=== PATIENT | female | born 1985 | race Caucasian/White ===

== ENCOUNTER 2024-07-18 05:59 | Emergency (ER) | payer OTHER, SELFPAY ==
[2024-07-18] VITALS (7 sets, daily range): BP systolic 99–141; BP diastolic 48–83; PULSE 103–115; RESP 17–20; TEMP 36.5–36.6; O2SAT 95–98; BMI 41.6
--- NOTE | ~2024-07-18 | US_ITS ---
EXAMINATION: US TRIPLEX LOWER EXTREMITY, BILATERAL CLINICAL INFORMATION: Bilateral lower external pain and swelling COMPARISON: None available. TECHNIQUE: Color-flow triplex imaging with spectral analysis and compression Doppler were performed on the bilateral lower extremities. FINDINGS: Respiratory variation, normal compression and augmented flow are noted throughout the bilateral lower extremities. The visualized common femoral vein, superficial femoral vein, profunda femoral vein, popliteal vein and midcalf posterior tibial venous segments show no evidence of deep venous thrombosis bilaterally. The bilateral peroneal veins are not visualized. There is no Crespo's cyst. US/US venous duplex LE BI IMPRESSION: No evidence of deep venous thrombosis involving the bilateral lower extremities. Electronically signed by: Luana Peñaloza MD 07/18/2024 01:18 PM [facility]
--- NOTE | ~2024-07-18 | XR_ITS ---
EXAMINATION: XR CHEST CLINICAL INFORMATION: chest pain COMPARISON: None available. TECHNIQUE: 2 views of the chest were obtained. FINDINGS: Poor inspiration. Mild prominence of the interstitial markings. No consolidation pleural effusion or pneumothorax. Cardiomediastinal silhouette appears normal in size. Osseous structures are intact. Patient's large body habitus. XR/XR chest 2V IMPRESSION: Consider mild interstitial edema in the correct clinical settings. Electronically signed by: Jair Guzman MD 07/18/2024 08:05 AM [facility] QUICK
--- NOTE | ~2024-07-18 | CT_ITS ---
EXAMINATION: CT HEAD WITHOUT CONTRAST CLINICAL INFORMATION: altered mental status COMPARISON: None available. TECHNIQUE: Contiguous axial imaging was performed from the skull base to vertex without intravenous administration of contrast. This CT examination was performed using dose optimization techniques as appropriate, variously including the following: *Automated exposure control *Adjustment of mA and/or kV according to patient size (this includes techniques or standardized protocols for targeted exams where dose is matched to indication/reason for exam; i.e. extremities or head) *Use of iterative reconstruction technique DLP: 607 mGy-cm FINDINGS: No acute intracranial hemorrhage, mass effect, midline shift, hydrocephalus or herniation. Smith-white matter differentiation is normal. Posterior cranial fossa contents demonstrated no gross masses or intracranial hemorrhage. Sellar/suprasellar region demonstrated no gross masses. Tympanic cavities and mastoid cells are aerated. No air-fluid levels in the included paranasal sinuses. CT/CT head/brain wo IV con IMPRESSION: No acute intracranial hemorrhage. Electronically signed by: Jair Guzman MD 07/18/2024 09:03 AM [facility]
[2024-07-18 06:43] LABS: MANUAL DIFF FLAG NO
[2024-07-18 06:45] LABS: Basophils Absolute Auto 0.1 X10*3/uL (0.0-0.2); Basophils Percent Auto 0.6 % (0-2); Eosinophils Absolute Auto 0.5 X10*3/uL (0.0-0.4); Eosinophils Percent Auto 3.6 % (0-4); Hematocrit 37.5 % (37.0-47.0); Hemoglobin 12.4 g/dl (12.0-16.0); Imm Gran Pct Auto 0.7 % (0.0-0.4); Lymphocytes Absolute Auto 2.5 X10*3/uL (1.2-4.9); Lymphocytes Percent Auto 17.8 % (20-40); Mean Corpuscular HGB Conc 33.1 g/dl (31.0-35.0); Mean Corpuscular Hemoglobin 28.2 pg (27.0-33.0); Mean Corpuscular Volume 85.4 fL (80.0-98.0); Mean Platelet Volume 8.8 fL (9.4-12.3); Monocytes Absolute Auto 0.9 X10*3/uL (0.1-1.2); Monocytes Percent Auto 6.6 % (2-11); Neutrophils Absolute Auto 9.9 x10*3/uL (2.0-8.3); Neutrophils Percent Auto 70.7 % (45-73); Platelet Count 428 X10*3/uL (160-400); Red Blood Count 4.39 X10*6/uL (4.20-5.50); Red Cell Distribution Width 15.3 % (11.0-16.0); White Blood Count 14.1 X10*3/uL (4.8-10.8)
--- NOTE | 2024-07-18 06:47 | ED_ITS ---
HPI - General Adult General Chief complaint: General Medical Stated complaint: new slurred speech & unsteady gait LKW 24 hrs Time Seen by Provider: 07/18/24 06:47 History of Present Illness ED Provider: Avila SCHULTE narrative: The patient is a 39-year-old woman who is currently a psychiatric inpatient at the [facility] locally she was admitted to the psychiatric facility from [facility] in [place] 3 days ago on July 15. According to records from [facility] she was psychiatrically hospitalized because of lorna with psychotic features. The patient has a history of being on lithium. Apparently staff at the psychiatric facility this morning were concerned that the patient seemed somewhat different. There was a question of a change in speech. There is also documentation they were concerned that she seemed to be leaning towards her left side. She also reported having headache for the last 4 days. There was also concerned that her blood pressure was lower than usual. There is no report of any fevers. The patient tells me that she feels that she has a lot of diffuse body pains. She says that is the primary issue today. She says that she has pains in her arms and her back and her legs. She did not mention a headache to me. Related Data Allergies Allergy/AdvReac Type Severity Reaction Status Date / Time Penicillins [PCN] Allergy Unknown Verified 07/18/24 06:19 Review of Systems 2 Review of Systems: Yes all other systems are reviewed and are negative [facility] Social History Social History Smoked in Last 30 Days: No Advance Directives: No Advance Directives Information Provided: No Do you have a plan to hurt others: No Plan Physical Exam ED Vital Signs: Vital Signs - 24 hr 07/18/24 06:12 07/18/24 08:22 07/18/24 09:42 Temperature 97.7 F 97.9 F Pulse Rate 104 H 108 H 115 H Respiratory Rate 17 17 20 Blood Pressure 99/48 L 126/72 141/83 H Pulse Oximetry 95 97 96 Oxygen Delivery Method Room Air Room Air Room Air 07/18/24 11:25 Temperature Pulse Rate 103 H Respiratory Rate 17 Blood Pressure 119/78 Pulse Oximetry 98 Oxygen Delivery Method Room Air BMI result Body Mass Index 41.6 Const Other: The patient is a 39-year-old woman who was awake and alert. She has a BMI of 41. She was sitting in a chair listening to music. She was oriented and appropriate. She looks somewhat chronically ill for her age. She did not appear obviously acutely ill. HENMT Other: Face is symmetrical. Mucous membranes are moist. Tongue is midline. Eyes Other: The patient seems to have some bilateral lid lag. This is slightly more evident on the left side. Pupils are round equal and reactive. Extraocular movements are intact. Visual trimble are intact to confrontation. Neck Other: Neck is supple. No adenopathy. Resp Effort & Inspection: normal respiratory effort Auscultation: clear to auscultation bilaterally Cardio Rate: regular rate Rhythm: regular rhythm Heart sounds: S1 normal heart sound present and S2 normal heart sound present GI Other: Abdomen is soft and nontender Skin Other: Skin is dry and unremarkable Neuro Other: The patient is awake and alert. She has an unusual affect but she is oriented and has a clear mental status. Her face is symmetrical. There is some slight drooping of the left eyelid but this seems similar to the appearance of her eyelids apparent on pictures of herself on her phone. Pupils are round, equal, and reactive to light. There is no pupillary asymmetry. Extraocular movements are intact. Visual trimble are intact to confrontation. The patient's speech is without dysarthria or aphasia. She often refers to herself in the 3rd person but she says she does this when she is feeling under stress. Neck is supple. She has intact strength in her extremities. There is no pronator drift. Finger-nose is normal bilaterally. Her gait is blow but steady without a footdrop. Extrem Other: There is bilateral lower extremity edema. Good pulses in the feet. Medications Administered Discontinued Medications Generic Name Dose Route Start Last Admin Trade Name Navarroq PRN Reason Stop Dose Admin Clonazepam 1 mg 07/18/24 10:11 07/18/24 10:19 Clonazepam 1 Mg Tablet PO 07/18/24 10:12 1 mg ONCE ONE Administration Olanzapine 5 mg 07/18/24 10:11 07/18/24 10:19 Olanzapine 5 Mg Tablet PO 07/18/24 10:12 5 mg ONCE ONE Administration Medical Decision Making Medical Decision Making [facility] Narrative: The patient is a 39-year-old woman with a history of bipolar disorder on lithium who comes to the emergency room here from the [facility]. Another facility for a few days. She has been sent there from an emergency room near [place] at a [facility]. The patient had apparently been evaluated for what seemed like manic behavior. The patient was sent here because of a concern about a change in her status. It seems as though there was concerned that she might have some slurring of speech or possibly leaning to the left. The patient tells me that the primary symptoms she is experiencing is pain throughout her body. She says that she has pain in her arms and her back in her legs. That the pain in her back radiates towards her groin bilaterally. She denies any vaginal symptoms. No urinary discomfort. No report of any fevers. On my exam the patient is awake and alert and appropriately oriented. She not seem confused or frankly altered in any way. I do not appreciate any lateralizing findings on exam. Speech does not seem grossly of normal except that she often refers to herself in the 3rd person. (She talks about what Crystal does when referring to herself). The patient's vital signs are significant for mild but persistent tachycardia. She denies any chest pain or shortness of breath. No abdominal pain, nausea, vomiting. The patient has a negative head CT. She has fairly significant bilateral lower extremity edema. A DVT ultrasound of both legs was negative[place] [address] but there was no left shift. CRP is elevated at 6. However she does not seem to have a fever and does not feel warm. The patient was observed in the emergency room for several hours. During that time she walked around the emergency department with several times. She had a pleasant demeanor and was cheerful. Ultimately I am not finding any definite findings of a stroke or other definite acute process. Ultimately I felt that she was appropriate to return to her psychiatric facility. Currently her psychiatric symptoms seem fairly stable. I spoke to staff at the psychiatric facility and explained that return to the emergency room for another evaluation. Lab Data 07/18/24 06:37 07/18/24 06:37 Labs: Lab Results 07/18/24 07/18/24 Range/Units 06:37 08:23 WBC 14.1 H (4.8-10.8) X10*3/uL RBC 4.39 (4.20-5.50) X10*6/uL Hgb 12.4 (12.0-16.0) g/dl Hct 37.5 (37.0-47.0) % MCV 85.4 (80.0-98.0) fL MCH 28.2 (27.0-33.0) pg MCHC 33.1 (31.0-35.0) g/dl RDW 15.3 (11.0-16.0) % Plt Count 428 H (160-400) X10*3/uL MPV 8.8 L (9.4-12.3) fL Immature Gran % (Auto) 0.7 H (0.0-0.4) % Neut % (Auto) 70.7 (45-73) % Lymph % (Auto) 17.8 L (20-40) % [place] % (Auto) 6.6 (2-11) % Eos % (Auto) 3.6 (0-4) % Baso % (Auto) 0.6 (0-2) % Lymph # (Auto) 2.5 (1.2-4.9) X10*3/uL [place] # (Auto) 0.9 (0.1-1.2) X10*3/uL Eos # (Auto) 0.5 H (0.0-0.4) X10*3/uL Baso # (Auto) 0.1 (0.0-0.2) X10*3/uL Abs Immat Gran (auto) 0.10 H (0.00-0.03) X10*3/uL Absolute Neuts (auto) 9.9 H (2.0-8.3) x10*3/uL Absolute Nucleated RBC 0.000 (0.0-0.012) X10*3/uL Nucleated RBC % (auto) 0.0 (0.0-0.2) /100WBC Sodium 141 (135-145) mmol/L Potassium 3.8 (3.3-5.1) mmol/L Chloride 109 H (96-108) mmol/L Carbon Dioxide 23 (22-29) mmol/L Anion Gap 13 (12-20) BUN 8 L (9-16) mg/dL Creatinine 0.72 (0.5-1.4) mg/dL Estim Creat Clear Calc 111.3 Estimated GFR > 60 Random Glucose 119 H (60-115) mg/dL Calcium 9.1 (8.4-10.2) mg/dL Magnesium 2.2 (1.6-2.6) mg/dL Total Bilirubin 0.9 (0.0-1.0) mg/dL AST 37 H (5-31) U/L ALT 38 H (0-31) U/L Alkaline Phosphatase 104 (39-117) U/L Total Creatine Kinase 464 H (26-140) U/L Troponin I High Sens < 2.7 (<3.5-17.0) ng/L C-Reactive Protein 6.30 H (< or = 0.50) mg/dL B-Natriuretic Peptide 13 (<100) pg/mL Total Protein 6.8 (6.5-8.0) g/dL Albumin 3.8 (3.5-5.0) g/dL Beta HCG, Quant < 2 mIU/mL Urine Color Yellow Urine Appearance Clear Urine pH 6.0 (5.0-9.0) Ur Specific [place] 1.010 (1.005-1.025) Urine Protein Negative (Neg-Trace) mg/dL Urine Glucose (UA) Negative (Negative) mg/dL Urine Ketones Negative (Negative) mg/dL Urine Blood Negative (Negative) Urine Nitrite Negative (Negative) Ur Leukocyte Esterase Negative (Negative) Urine Opiates Screen Not Detected (Not Detect) Ur Buprenorphine Scrn Not Detected (Not Detect) ng/mL Ur Oxycodone Screen Not Detected (Not Detect) ng/mL Urine Methadone Screen Not Detected (Not Detect) ng/mL Urine Fentanyl Screen Not Detected (Not Detect) Ur Barbiturates Screen Not Detected (Not Detect) Ur Phencyclidine Scrn Not Detected (Not Detect) Ur Amphetamines Screen Not Detected (Not Detect) U Benzodiazepines Scrn Not Detected (Not Detect) [place] 0.72 (0.60-1.20) mmol/L Urine Cocaine Screen Not Detected (Not Detect) U Marijuana (THC) Screen Not Detected (Not Detect) Ethyl Alcohol < 10 mg/dL Discharge Plan Discharge Clinical Impression: Bilateral lower extremity edema, Body aches, Bipolar disorder Patient Disposition: Xfer Psychiatric Hosp Additional Instructions: The workup in the emergency department includes a negative head CT. Also negative bilateral lower extremity DVT ultrasounds. [place] level is 0.72. Other labs are nondiagnostic. At this point not finding evidence of an acute process requiring hospitalization or other definite testing in the emergency department. Please continue her current medication regimen. Please return to the emergency room if worse Referrals: [facility] [Outside] Print Language: Maori
[2024-07-18 06:52] LABS: Lithium 0.72 mmol/L (0.60-1.20)
[2024-07-18 06:59] LABS: Alanine Aminotransferase 38 U/L (0-31); Albumin Level 3.8 g/dL (3.5-5.0); Alkaline Phosphatase 104 U/L (39-117); Anion Gap 13 (12-20); Aspartate Amino Transferase 37 U/L (5-31); Bilirubin Total 0.9 mg/dL (0.0-1.0); Blood Urea Nitrogen 8 mg/dL (9-16); Calcium 9.1 mg/dL (8.4-10.2); Carbon Dioxide 23 mmol/L (22-29); Chloride 109 mmol/L (96-108); Creatinine Clr Calc Pharmacy 111.3; Estimated Glomerular Filt Rate > 60; Glucose Random 119 mg/dL (60-115); Potassium 3.8 mmol/L (3.3-5.1); Sodium 141 mmol/L (135-145); Total Protein 6.8 g/dL (6.5-8.0)
--- NOTE | 2024-07-18 07:00 | ECG_ITS ---
Test Reason : HYPOTENSION Blood Pressure : / mmHG Vent. Rate : 101 BPM Atrial Rate : 101 BPM P-R Int : 168 ms QRS Dur : 072 ms QT Int : 380 ms P-R-T Axes : 037 060 091 degrees QTc Int : 492 ms Sinus tachycardia Cannot rule out Anterior infarct , age undetermined Abnormal ECG No previous ECGs available Referred By: Rocco Gramajo Electronically Signed By:CRUZ GONZALEZ MD
[2024-07-18 07:34] LABS: Ethanol < 10 mg/dL; HCG Quantitative < 2 mIU/mL; Magnesium 2.2 mg/dL (1.6-2.6)
[2024-07-18 08:35] LABS: Appearance Urine Clear; Color Urine Yellow; Glucose Urine UA Negative (Negative); Leukocyte Esterase Urine Negative (Negative); Nitrite Urine Negative (Negative); Urine Blood Negative (Negative); Urine Ketones Negative (Negative); Urine Protein Negative (Neg-Trace)
[2024-07-18 08:46] LABS: Amphetamine Screen Urine Not Detected (Not Detect); Barbiturates, Urine Not Detected (Not Detect); Benzodiazepines Screen Urine Not Detected (Not Detect); Buprenorphine Scr Not Detected (Not Detect); Cannabinoid Screen Urine Not Detected (Not Detect); Cocaine Screen Urine Not Detected (Not Detect); Fentanyl, urine Not Detected (Not Detect); Methadone Screen, Urine Not Detected (Not Detect); Opiate Screen Urine Not Detected (Not Detect); Oxycodone Screen Urine Not Detected (Not Detect); Phencyclidine Screen Urine Not Detected (Not Detect)
[2024-07-18 08:56] LABS: Troponin-I High Sensitivity < 2.7 ng/L (<3.5-17.0)
[2024-07-18 08:58] LABS: B Type Natriuretic Peptide 13 pg/mL (<100)
[2024-07-18] MEDS: clonazePAM 1 MG TABLET PO (10:19)
[2024-07-18] MEDS: OLANZapine 5 MG TABLET PO (10:19)
--- NOTE | 2024-07-18 16:43 | PC.NURSE ---
physician aware of vitals, plan continues to be for discharge.
[2024-07-18] MEDS: Acetaminophen 325 MG TABLET 975 MG PO (17:11)
[2024-07-18] MEDS: Ibuprofen 400 MG TABLET PO (17:12)
[2024-07-18] MEDS: Ondansetron ODT 4 MG TAB.RAPDIS TRANSLINGU (17:13)
== END 2024-07-18 17:38 ==
PROVIDERS: Emergency Provider Emergency Medicine
DX: R41.82 Altered mental status, unspecified (principal); R60.0 Localized edema; R53.81 Other malaise; F31.9 Bipolar disorder, unspecified; R07.9 Chest pain, unspecified; I95.9 Hypotension, unspecified; M79.605 Pain in left leg; M79.604 Pain in right leg; Z79.899 Other long term (current) drug therapy
CPT/HCPCS: 36415; 70450; 71046; 80053; 80178; 80307; 81003; 82550; 83735; 83880; 84484; 84702; 85025; 86140; 93005; 93970; 99285

== ENCOUNTER → 2024-07-18 07:00 | Outpatient (BNV) | payer OTHER, SELFPAY | PROVIDERS: Emergency Provider Emergency Medicine; Visit Provider Internal Medicine Cardiovascular Disease | DX: R94.31 Abnormal electrocardiogram [ECG] [EKG] (principal) | CPT/HCPCS: 93010 ==

== ENCOUNTER → 2024-07-18 07:32 | Outpatient (BNV) | payer OTHER, SELFPAY | PROVIDERS: Emergency Provider Emergency Medicine; Visit Provider Radiology Diagnostic Radiology | DX: R41.82 Altered mental status, unspecified (principal); R07.9 Chest pain, unspecified | CPT/HCPCS: 70450; 71046 ==

== ENCOUNTER 2025-01-26 21:38 | Emergency (ER) | payer OTHER, SELFPAY ==
--- NOTE | 2025-01-26 | ECG_ITS ---
Test Reason : AMS Blood Pressure : */* mmHG Vent. Rate : 82 BPM Atrial Rate : 82 BPM P-R Int : 164 ms QRS Dur : 80 ms QT Int : 426 ms P-R-T Axes : 36 75 80 degrees QTcB Int : 497 ms Normal sinus rhythm Prolonged QT Abnormal ECG When compared with ECG of 18-Jul-2024 07:18, No significant changes seen Referred By: Sal Omer Electronically Signed By: QUYNH BRAND
--- NOTE | ~2025-01-26 | CT_ITS ---
CLINICAL HISTORY: poorly characterized abdominal and back pain. psyc Exam: CT abdomen and pelvis without intravenous contrast. Comparison: None. Findings: Study limited by lack of intravenous contrast. Specifically, evaluation of the vascular tree, solid abdominal organs, and gastrointestinal tract be limited without IV contrast administration. This is especially true given the clinical history provided of ???poorly characterized abdominal pain.??? Additional study limitation of patient motion including respiratory motion. CT abdomen: No infiltrates are identified within the lung bases. No acute bony lesions. Gallbladder is surgically absent. Unenhanced liver, spleen, pancreas, adrenal glands, and kidneys are unremarkable for acute findings. Small bowel loops are of normal caliber. No free fluid or free air. CT pelvis: Appendix is normal. No colonic wall thickening or pericolonic inflammatory stranding. No free fluid or free air. No enlarged lymph nodes. Impression: No acute imaging explanation for the patient's symptoms on noncontrast CT of the abdomen and pelvis. This document has been electronically signed by: Nikko Bowers MD on 01/27/2025 01:31:08
--- NOTE | ~2025-01-26 | CT_ITS ---
CLINICAL HISTORY: nonspecific encephalopathy CT head without contrast Comparison: None Findings: No intra-axial mass, midline shift, hydrocephalus, or acute hemorrhage. No significant atrophy-like change or white matter disease. There is no sinus or mastoid fluid. The orbits are within normal limits. No skull fracture. IMPRESSION: 1. No acute intracranial findings. This document has been electronically signed by: Nikko Bowers MD on 01/27/2025 01:17:35
[2025-01-26 21:43] VITALS: BP 98/60; PULSE 80; O2SAT 96
[2025-01-26 21:54] VITALS: BP 96/53; PULSE 81; RESP 16; TEMP 36.4; O2SAT 97
[2025-01-26 22:02] VITALS: BP 107/64; PULSE 81; RESP 20; TEMP 36.4; BMI 32.4
[2025-01-26 22:37] LABS: MANUAL DIFF FLAG NO
[2025-01-26 22:39] LABS: Basophils Absolute Auto 0.1 X10*3/uL (0.0-0.2); Basophils Percent Auto 0.5 % (0-2); Eosinophils Absolute Auto 0.3 X10*3/uL (0.0-0.4); Eosinophils Percent Auto 3.2 % (0-4); Hematocrit 39.9 % (37.0-47.0); Hemoglobin 12.9 g/dl (12.0-16.0); Imm Gran Abs Auto 0.04 X10*3/uL (0.00-0.03); Imm Gran Pct Auto 0.4 % (0.0-0.4); Lymphocytes Absolute Auto 2.3 X10*3/uL (1.2-4.9); Lymphocytes Percent Auto 24.6 % (20-40); Mean Corpuscular HGB Conc 32.3 g/dl (31.0-35.0); Mean Corpuscular Hemoglobin 27.8 pg (27.0-33.0); Mean Platelet Volume 8.9 fL (9.4-12.3); Monocytes Absolute Auto 0.9 X10*3/uL (0.1-1.2); Monocytes Percent Auto 9.6 % (2-11); Neutrophils Absolute Auto 5.8 x10*3/uL (2.0-8.3); Neutrophils Percent Auto 61.7 % (45-73); Platelet Count 385 X10*3/uL (160-400); Red Blood Count 4.64 X10*6/uL (4.20-5.50); White Blood Count 9.4 X10*3/uL (4.8-10.8)
[2025-01-26 22:53] LABS: Alanine Aminotransferase 34 U/L (0-31); Albumin Level 4.2 g/dL (3.5-5.0); Alkaline Phosphatase 93 U/L (39-117); Anion Gap 10 (12-20); Aspartate Amino Transferase 26 U/L (5-31); Bilirubin Total 0.5 mg/dL (0.0-1.0); Blood Urea Nitrogen 11 mg/dL (9-16); Calcium 9.4 mg/dL (8.4-10.2); Carbon Dioxide 25 mmol/L (22-29); Chloride 107 mmol/L (96-108); Creatinine Clr Calc Pharmacy 112.1; Estimated Glomerular Filt Rate > 60; Ethanol < 10 mg/dL; Glucose Random 99 mg/dL (60-115); Lipase 20 U/L (8-78); Potassium 3.8 mmol/L (3.3-5.1); Sodium 138 mmol/L (135-145); Total Protein 7.2 g/dL (6.5-8.0)
[2025-01-26 22:54] LABS: Acetaminophen LAB < 3 mcg/mL (<30); Salicylate < 5.0 mg/dL (15-30)
--- NOTE | 2025-01-26 22:57 | ED_ITS ---
HPI - General Adult General Chief complaint: Altered Mental Status Stated complaint: ams Time Seen by Provider: 01/26/25 22:11 History of Present Illness HPI narrative: 39 F brought for eval from psych inpatient facility nearby. New antipsychotics and recent med adjustments. Staff was concerned yesterday for some mental status changes and leaning to the right when walking. No focal motor deficits reported or trauma. Pt aknowledges chronic back pain unnchanged. She denies incontinence as reported by staff. She has been continent in the ED. No headache. Feels sleepy. Denies subj fever, dysuria or any other sx. Related Data Allergies Allergy/AdvReac Type Severity Reaction Status Date / Time Penicillins [PCN] Allergy Unknown Unverified 01/26/25 22:09 Physical Exam ED Vital Signs: Vital Signs - 24 hr 01/26/25 21:54 01/26/25 22:02 Temperature 97.6 F 97.5 F Pulse Rate 81 81 Respiratory Rate 16 20 Blood Pressure 96/53 L 107/64 Pulse Oximetry 97 Oxygen Delivery Method Room Air BMI result Body Mass Index 32.4 Const Other: Appearance: Sleepy, easily aroused.? Oriented X3.? No acute distress. ? Eyes: Pupils equal, round and reactive to light. ? ENT: Pharynx normal.? Atraumatic Neck: Normal inspection.? Neck supple. ? CVS: Normal heart rate and rhythm.? Pulses normal. ? Respiratory: No respiratory distress.? Breath sounds normal. ? Abdomen: Soft and nontender. ?No distension or focal tenderness. Back: no bruise, no CVAT. No midline ttp. Skin: Skin warm and dry.? Normal skin color. ? Extremities: No lower extremity edema. ? Neuro: Oriented X 3.? No motor deficit.? No sensory deficit. CN2-12 intact. Gait steady, subtle lean to the right seems more related to generally sedated. Medical Decision Making Medical Decision Making MDM Narrative: 39-year-old female sent from [facility] this is her 2nd ED visit during her 4 or 5 day inpatient stay at [facility]. Most of the history provided by is shallow the nurse who I spoke with at [facility] [place] additional history provided by Dr. Khan. She is admitted there for bipolar/PTSD/severe anxiety she has had some medication adjustments recently. She has had increases to follow up by decreases in her Thorazine she has initiated Zyprexa she has had some adjustments to clonazepam. Staff was concerned yesterday for some mental status changes and white blood cell count 14 she was sent to [facility]. Verbal report from a shallow was that not much was done there as they were unable to get blood work I do not have records to review myself. Patient again today was doing reasonably well but later in the afternoon staff found her complaining of nonspecific back pain having some trouble walking they reported that she was incontinent of bowel and bladder and had slurring of her speech. There was no reported injuries fever no vomiting reported. The patient herself is drowsy does have some mild generalized slurring of the speech. She tells me that ?I kept banging I needed to go to the bathroom ?and that is why I soiled myself she complains of mild abdominal pain no significant back pain. Staff has with 1 assist brought her to the commode and she has been continent in the emergency department. She has no focal motor or sensory deficits overall she appears drowsy with what to me appears to be more likely medication adverse effect with slurring drowsiness She is certainly not meningitic has no evidence of trauma on her lab work is reassuring including no leukocytosis and a normal chemistry and urine test Lab Data 01/26/25 22:33 01/26/25 22:33 Labs: Lab Results 01/26/25 01/26/25 Range/Units 22:33 22:59 WBC 9.4 (4.8-10.8) X10*3/uL RBC 4.64 (4.20-5.50) X10*6/uL Hgb 12.9 (12.0-16.0) g/dl Hct 39.9 (37.0-47.0) % MCV 86.0 (80.0-98.0) fL MCH 27.8 (27.0-33.0) pg MCHC 32.3 (31.0-35.0) g/dl RDW 15.0 (11.0-16.0) % Plt Count 385 (160-400) X10*3/uL MPV 8.9 L (9.4-12.3) fL Immature Gran % (Auto) 0.4 (0.0-0.4) % Neut % (Auto) 61.7 (45-73) % Lymph % (Auto) 24.6 (20-40) % [place] % (Auto) 9.6 (2-11) % Eos % (Auto) 3.2 (0-4) % Baso % (Auto) 0.5 (0-2) % Lymph # (Auto) 2.3 (1.2-4.9) X10*3/uL [place] # (Auto) 0.9 (0.1-1.2) X10*3/uL Eos # (Auto) 0.3 (0.0-0.4) X10*3/uL Baso # (Auto) 0.1 (0.0-0.2) X10*3/uL Abs Immat Gran (auto) 0.04 H (0.00-0.03) X10*3/uL Absolute Neuts (auto) 5.8 (2.0-8.3) x10*3/uL Absolute Nucleated RBC 0.000 (0.0-0.012) X10*3/uL Nucleated RBC % (auto) 0.0 (0.0-0.2) /100WBC Sodium 138 (135-145) mmol/L Potassium 3.8 (3.3-5.1) mmol/L Chloride 107 (96-108) mmol/L Carbon Dioxide 25 (22-29) mmol/L Anion Gap 10 L (12-20) BUN 11 (9-16) mg/dL Creatinine 0.75 (0.5-1.4) mg/dL Estim Creat Clear Calc 112.1 Estimated GFR > 60 Random Glucose 99 (60-115) mg/dL Calcium 9.4 (8.4-10.2) mg/dL Total Bilirubin 0.5 (0.0-1.0) mg/dL AST 26 (5-31) U/L ALT 34 H (0-31) U/L Alkaline Phosphatase 93 (39-117) U/L Total Protein 7.2 (6.5-8.0) g/dL Albumin 4.2 (3.5-5.0) g/dL Lipase 20 (8-78) U/L Beta HCG, Quant < 2 mIU/mL Urine Color Yellow Urine Appearance Clear Urine pH 6.5 (5.0-9.0) Ur Specific [place] 1.010 (1.005-1.025) Urine Protein Negative (Neg-Trace) mg/dL Urine Glucose (UA) Negative (Negative) mg/dL Urine Ketones Trace (Negative) mg/dL Urine Blood Negative (Negative) Urine Nitrite Negative (Negative) Ur Leukocyte Esterase Trace H (Negative) Urine RBC 0-2 (0-2) /HPF Urine WBC 0-5 (0-5) /HPF Ur Squamous Epith Cells 3-5 (0-2) /HPF Urine Bacteria Trace (None Seen) Hyaline Casts 0-2 (0-2) /LPF Salicylates < 5.0 L (15-30) mg/dL Urine Opiates Screen Not Detected (Not Detect) Ur Buprenorphine Scrn Not Detected (Not Detect) ng/mL Ur Oxycodone Screen Not Detected (Not Detect) ng/mL Urine Methadone Screen Not Detected (Not Detect) ng/mL Urine Fentanyl Screen Not Detected (Not Detect) Acetaminophen < 3 (<30) mcg/mL Ur Barbiturates Screen Not Detected (Not Detect) Ur Phencyclidine Scrn Not Detected (Not Detect) Ur Amphetamines Screen Not Detected (Not Detect) U Benzodiazepines Scrn Not Detected (Not Detect) Urine Cocaine Screen Not Detected (Not Detect) U Marijuana (THC) Screen Not Detected (Not Detect) Ethyl Alcohol < 10 mg/dL Radiology Impression Discussion of test interpretation with radiology: I have reviewed the radiologist's reading. Discharge Plan Discharge Clinical Impression: Acute delirium Patient Disposition: Xfer Psychiatric Hosp Instructions: Acute Delirium (ED) Additional Instructions: Ms. Tim was evaluated for staff reporting incontinence atypical gait leaning to the right and complaining of back and abdominal pain. The patient here appeared drowsy with slurred speech that was felt not to be neurologic or due to an encephalopathy but possibly adverse medication related. She did not have a fever and had normal vital signs. Lab work including blood counts chemistry and urinalysis was all reassuring and normal. Case was discussed with nurse at [facility] and the on-call medical physician from your [facility] Dr. Khan. Together we agreed CT head and CT abdomen and pelvis if benign would reassure staff that there was not an acute medical emergency causing the patient's bizarre presentation. I do not see any acute emergent medical condition. CTs are reassuring and we will discharge her back to your facility. Interventions: Acute Care Transfer Worksheet (ED) Last Done: 01/27/25 04:12 Discharge Date/Time: 01/27/25 04:15 Print Language: Lithuanian
[2025-01-26 23:02] LABS: HCG Quantitative < 2 mIU/mL
--- NOTE | 2025-01-26 23:02 | MHC.EDTECH ---
Patient stated that she needed to use the bathroom. Patient got up with 2 staff members. Patient was weak and unsteady but was able to provide a urine sample.
[2025-01-26 23:07] LABS: Appearance Urine Clear; Color Urine Yellow; Glucose Urine UA Negative (Negative); Leukocyte Esterase Urine Trace (Negative); Nitrite Urine Negative (Negative); PH 6.5 (5.0-9.0); UMIC TRIGGER UACC YES; Urine Blood Negative (Negative); Urine Ketones Trace mg/dL (Negative); Urine Protein Negative (Neg-Trace)
[2025-01-26 23:09] LABS: Bacteria Urine Trace (None Seen); Hyaline Casts Urine 0-2 /LPF (0-2); RBC Urine 0-2 /HPF (0-2); WBC Urine 0-5 /HPF (0-5)
[2025-01-26 23:17] LABS: Amphetamine Screen Urine Not Detected (Not Detect); Barbiturates, Urine Not Detected (Not Detect); Benzodiazepines Screen Urine Not Detected (Not Detect); Buprenorphine Scr Not Detected (Not Detect); Cannabinoid Screen Urine Not Detected (Not Detect); Cocaine Screen Urine Not Detected (Not Detect); Fentanyl, urine Not Detected (Not Detect); Methadone Screen, Urine Not Detected (Not Detect); Opiate Screen Urine Not Detected (Not Detect); Oxycodone Screen Urine Not Detected (Not Detect); Phencyclidine Screen Urine Not Detected (Not Detect)
[2025-01-27 04:12] VITALS: BP 110/68; PULSE 82; RESP 16; TEMP 36.6; O2SAT 96
== END 2025-01-27 04:15 ==
PROVIDERS: Emergency Provider Emergency Medicine
DX: R41.0 Disorientation, unspecified (principal); R10.2 Pelvic and perineal pain; M54.50 Low back pain, unspecified; R94.31 Abnormal electrocardiogram [ECG] [EKG]; Z79.899 Other long term (current) drug therapy; Z51.81 Encounter for therapeutic drug level monitoring
CPT/HCPCS: 36415; 70450; 74176; 80053; 80143; 80179; 80307; 81001; 83690; 84702; 85025; 93005; 99285

== ENCOUNTER → 2025-01-26 22:36 | Outpatient (BNV) | payer OTHER, SELFPAY | PROVIDERS: Emergency Provider Emergency Medicine; Visit Provider Internal Medicine | DX: R94.31 Abnormal electrocardiogram [ECG] [EKG] (principal); R41.82 Altered mental status, unspecified | CPT/HCPCS: 93010 ==

== ENCOUNTER → 2025-01-27 | Outpatient (BNV) | payer OTHER, SELFPAY | PROVIDERS: Emergency Provider Emergency Medicine; Visit Provider Radiology Diagnostic Radiology | DX: R10.9 Unspecified abdominal pain (principal); M54.9 Dorsalgia, unspecified; G93.40 Encephalopathy, unspecified | CPT/HCPCS: 70450; 74176 ==